=== PATIENT | male | born 1970 | race Caucasian/White ===

== ENCOUNTER 2021-11-19 21:46 | Observation (INO) | payer OTHER ==
[2021-11-19] MEDS ORDERED: Sodium Chloride 0.9% 10 ML Syringe FLUSH PRN (21:56)
[2021-11-19 22:42] LABS: ESTIMATED GFR > 60 (>60)
[2021-11-19 22:57] LABS: CORONAVIRUS COVID-19 NAA NEGATIVE (NEGATIVE)
[2021-11-19] MEDS ORDERED: Potassium Chloride Riders 20 MEQ in Premix Bag 1 BAG IV ONE (23:02)
[2021-11-19] MEDS ORDERED: Ondansetron 4 MG/2 ML SDV IVPUSH ONE (23:03)
[2021-11-19] MEDS ORDERED: Lidocaine 1% 5 ML VIAL INJECT ONE (23:06)
[2021-11-19] MEDS ORDERED: Sodium Chloride 0.9% 1,000 ML IV SCH (23:15)
[2021-11-19] MEDS ORDERED: Doxycycline 100 MG in Sodium Chloride 0.9% 100 ML IV SCH (23:30)
[2021-11-20] MEDS ORDERED: Ondansetron 4 MG Tab.DIS PO PRN (00:33)
[2021-11-20] MEDS ORDERED: Acetaminophen 325 MG Tab PO PRN (00:33)
[2021-11-20] MEDS ORDERED: Docusate Sodium 100 MG Cap PO PRN (00:33)
[2021-11-20] MEDS ORDERED: Sodium Chloride 0.9% 1,000 ML IV SCH ×2 (00:33→11:30)
[2021-11-20] MEDS ORDERED: Bisacodyl 5 MG Tab PO PRN (00:33)
[2021-11-20] MEDS ORDERED: Morphine 2 MG/ML SYRINGE IVPUSH PRN (00:33)
[2021-11-20] MEDS ORDERED: Albuterol 0.083% 2.5 MG/3 ML Neb Soln NEB PRN (00:33)
[2021-11-20] MEDS: Ibuprofen 800 MG Tab PO PRN ×2 (01:07→09:16)
[2021-11-20] MEDS: Albuterol/Ipratropium 3.0-0.5 MG/3 ML Neb Soln NEB SCH ×3 (01:32→10:37)
[2021-11-20 06:02] LABS: ESTIMATED GFR > 60 (>60)
[2021-11-20] MEDS: Acetaminophen/HYDROcodone 325-5 MG Tab PO PRN ×2 (08:15→19:42)
[2021-11-20] MEDS ORDERED: Pantoprazole 40 MG Vial IV SCH (09:00)
[2021-11-20] MEDS: Enoxaparin 40 MG/0.4 ML Syringe SUBCUT SCH (09:16)
[2021-11-20] MEDS ORDERED: Potassium Chloride 20 MEQ Tab.ER PO ONE (09:30)
[2021-11-20] MEDS: Doxycycline 100 MG in Sodium Chloride 0.9% 100 ML IV SCH ×2 (11:33→22:03)
[2021-11-21] MEDS: Ibuprofen 800 MG Tab PO PRN (02:24)
[2021-11-21 05:35] LABS: ESTIMATED GFR > 60 (>60)
[2021-11-21] MEDS: Enoxaparin 40 MG/0.4 ML Syringe SUBCUT SCH (08:36)
[2021-11-21] MEDS ORDERED: Doxycycline 100 MG Cap PO ONE (10:00)
[2021-11-23 15:13] LABS: BABESIA MICROTI IGG <1:10 (Neg:<1:10); BABESIA MICROTI IGM <1:10 (Neg:<1:10)
[2021-11-24 14:13] LABS: HGE IGG TITER Negative (Neg:<1:64); HGE IGM TITER Negative (Neg:<1:20)
== END 2021-11-21 10:45 | disposition home or self-care (01) ==
LOC: JP.ED 21:46 → INTOOBSV 23:41 → JP.MS 23:41 → UNDOADMIN 11-20 00:31
PROVIDERS: ADMIT Internal Medicine; ATTEND Internal Medicine
DX: A77.49 Other ehrlichiosis (principal); A93.8 Other specified arthropod-borne viral fevers; A69.20 Lyme disease, unspecified; E87.6 Hypokalemia; E78.00 Pure hypercholesterolemia, unspecified; F32.A Depression, unspecified; Z87.891 Personal history of nicotine dependence; Z98.890 Other specified postprocedural states; Z20.822 Contact with and (suspected) exposure to COVID-19
CPT/HCPCS: 0241U; 36415; 71045; 71045-26; 80048; 80053; 81001; 85025; 85027; 86140; 86617; 86617-59; 86618; 86666; 86753; 94640; 96365; 96366; 96368; 96372; 96375; 99217; 99218; 99224; 99284; 99285-25; A9270-GY; C9113; G0378; J1650; J2405; J3480; J3490; J7030; J7620